=== PATIENT | female | born 1960 | race African-American/Black ===

== ENCOUNTER 2024-11-27 13:57 | Emergency (ER) | payer MEDICARE, OTHER ==
[2024-11-27 15:20] LABS: Basophils # (A) 0.06 10*3/uL (0.00-0.10); Basophils % (A) 1.0 %; Eosinophils # (A) 0.01 10*3/uL (0.04-0.35); Eosinophils % (A) 0.2 %; HCT 40.1 % (37.2-46.3); HGB 12.9 g/dL (12.0-15.0); Lymphocytes # (A) 1.19 10*3/uL (0.90-5.00); Lymphocytes % (A) 19.8 %; MCH 27.4 pg (27.0-32.0); MCHC 32.2 g/dL (32.0-37.0); MCV 85.1 fL (80.0-97.0); Monocytes # (A) 0.25 10*3/uL (0.20-1.00); Monocytes % (A) 4.2 %; Neutrophils # (A) 4.48 10*3/uL (1.80-7.70); Neutrophils % (A) 74.6 %; Platelet Count 316 10*3/uL (140-440); RBC 4.71 10*6/uL (4.10-5.20); RDW 15.8 % (11.5-14.5); WBC 6.00 10*3/uL (4.50-10.00)
--- NOTE | 2024-11-27 16:16 | ED ---
General Adult HPI - General Chief complaint: Abdominal Pain Stated complaint: Headache Time Seen by Provider: 11/27/24 14:10 Source: patient, RN notes reviewed Mode of arrival: ambulatory Limitations: no limitations - History of Present Illness Initial comments: 64-year-old female with history of hypertension presenting to the emergency department via EMS from [facility] with concerns for headache, abdominal pain, nausea and vomiting over the past 2 days. Patient states that she normally strains as a headache when her blood pressure is elevated as it has been. She denies chest pain, heart palpitations, dizziness, lightheadedness, peripheral edema. Patient endorses epigastric abdominal pain that is nonradiating and episode of emesis earlier in the day. She states that she was recently mated to the hospital for a kidney infection. States that she has been having malodorous vaginal discharge that is brown. Denies dysuria, hematuria, increased urinary frequency or urgency, flank pain. Denies previous surgeries of the abdomen. - Related Data Home Medications Medication Instructions Recorded Confirmed Acetaminophen [Tylenol] 650 mg PO Q4H PRN 11/27/24 11/27/24 Docusate [Colace] 100 mg PO BID PRN 11/27/24 11/27/24 Fluconazole [Diflucan] 150 mg PO DIRECTED 11/27/24 11/27/24 Magnesium Hydroxide [Milk of 2,400 mg PO BID PRN 11/27/24 11/27/24 Magnesia] Melatonin 10 mg PO HS 11/27/24 11/27/24 Mirtazapine [Remeron] 15 mg PO HS 11/27/24 11/27/24 Omeprazole 20 mg PO BID 11/27/24 11/27/24 Rosuvastatin [Crestor] 10 mg PO HS 11/27/24 11/27/24 Sucralfate [Carafate] 1 gm PO QID 11/27/24 11/27/24 Sulfamethox-Tmp 800-160Mg [Bactrim 1 tab PO BID 11/27/24 11/27/24 DS 800-160 mg] amLODIPine [Norvasc] 10 mg PO DAILY 11/27/24 11/27/24 Previous Rx's Medication Instructions Recorded Cephalexin [Keflex] 500 mg PO Q6HR #40 cap 11/27/24 Allergies Allergy/AdvReac Type Severity Reaction Status Date / Time ibuprofen [From Motrin] AdvReac Nausea Verified 11/27/24 21:09 Review of Systems ROS Statement: Those systems with pertinent positive or pertinent negative responses have been documented in the HPI. ROS Other: All systems not noted in ROS Statement are negative. Past Medical History Past Medical History: Hypertension Additional Past Medical History / Comment(s): Stomach ulcer, History of Any Multi-Drug Resistant Organisms: None Reported Additional Past Surgical History / Comment(s): Bleeding ulcer repair in 1988, Past Psychological History: No Psychological Hx Reported Smoking Status: Current every day smoker Past Alcohol Use History: Daily Past Drug Use History: Cocaine General Exam Limitations: no limitations General appearance: alert, in no apparent distress Neck exam: Present: normal inspection. Absent: tenderness, meningismus, lymphadenopathy Respiratory exam: Present: normal lung sounds bilaterally. Absent: respiratory distress, wheezes, rales, rhonchi, stridor Cardiovascular Exam: Present: regular rate, normal rhythm, normal heart sounds. Absent: systolic murmur, diastolic murmur, rubs, gallop, clicks GI/Abdominal exam: Present: soft, normal bowel sounds. Absent: distended, tenderness, guarding, rebound, rigid Extremities exam: Present: normal inspection, full ROM, normal capillary refill. Absent: tenderness, pedal edema, joint swelling, calf tenderness Back exam: Present: normal inspection. Absent: CVA tenderness (R), CVA tenderness (L) Neurological exam: Present: alert, oriented X3, CN II-XII intact Course Vital Signs 11/27/24 11/27/24 11/27/24 14:14 16:35 16:45 Temperature 97.9 F Pulse Rate 72 Respiratory 20 Rate Blood Pressure 159/94 133/89 146/82 O2 Sat by Pulse 99 Oximetry 11/27/24 11/27/24 11/27/24 17:02 19:21 20:00 Temperature Pulse Rate 71 63 Respiratory 18 16 Rate Blood Pressure 128/75 141/88 O2 Sat by Pulse 100 100 Oximetry 11/27/24 20:32 Temperature Pulse Rate 65 Respiratory 17 Rate Blood Pressure 160/87 O2 Sat by Pulse 99 Oximetry Medical Decision Making - Medical Decision Making Was pt. sent in by a medical professional or institution (, PA, GARDEN TRACTOR MECHANIC, urgent care, hospital, or longterm...) When possible be specific @ -No Did you speak to anyone other than the patient for history (EMS, parent, family, police, friend...)? What history was obtained from this source @ -No Did you review nursing and triage notes (agree or disagree)? Why? @ -I reviewed and agree with nursing and triage notes Were old charts reviewed (outside hosp., previous admission, EMS record, old EKG, old radiological studies, urgent care reports/EKG's, longterm records)? Report findings @ -No old charts were reviewed Differential Diagnosis (chest pain, altered mental status, abdominal pain women, abdominal pain men, vaginal bleeding, weakness, fever, dyspnea, syncope, headache, dizziness, GI bleed, back pain, seizure, CVA, palpatations, mental health, musculoskeletal)? @ -Differential Headache: Migraine, tension, cluster, carbon monoxide, central venous thrombosis, pension karma temporal arteritis, acute closure glaucoma, intercranial hemorrhage, mastoiditis, sinusitis, head injury, this is not meant to be an all-inclusive list. EKG interpreted by me (3pts min.). @ -Completed at 1656 sinus rhythm with a ventricular to 61, WA interval 149, QRS 81, QT 458, QTc 460. X-rays interpreted by me (1pt min.). @ -None done CT interpreted by me (1pt min.). @ -None done U/S interpreted by me (1pt. min.). @ -None done What testing was considered but not performed or refused? (CT, X-rays, U/S, labs)? Why? @ -None What meds were considered but not given or refused? Why? @ -None Did you discuss the management of the patient with other professionals (professionals i.e. , PA, GARDEN TRACTOR MECHANIC, lab, RT, psych nurse, social science analyst, regional program manager, teacher, ground nuclear weapons assembly officer, machine adjuster leader case trim)? Give summary @ -No Was smoking cessation discussed for >3mins.? @ -No Was critical care preformed (if so, how long)? @ -No Were there social determinants of health that impacted care today? How? (Homelessness, low income, unemployed, alcoholism, drug addiction, transportation, low edu. Level, literacy, decrease access to med. care, senior care, rehab)? @ -No Was there de-escalation of care discussed even if they declined (Discuss DNR or withdrawal of care, Hospice)? DNR status @ -No What co-morbidities impacted this encounter? (DM, HTN, Smoking, COPD, CAD, Cancer, CVA, ARF, Chemo, Hep., AIDS, mental health diagnosis, sleep apnea, morbid obesity)? @ -None Was patient admitted / discharged? Hospital course, mention meds given and route, prescriptions, significant lab abnormalities, going to OR and other pertinent info. @ -Discharge. 64-year-old female presenting to the emergency room via EMS from [place] for concerns of hypertension, headache and abdominal pain. Patient's blood pressure was 159/94 on arrival. EKG is in sinus rhythm. Overall patient is well-appearing. Patient states that she has abdominal cram ping however no tenderness on examination. Neurological examination is unremarkable. She is provided with dose of Tylenol and fluids for headache. Laboratory testing reveals mildly elevated creatinine 1.63 and BUN of 24 patient is provided with fluids. Urinalysis reveals leukocyte esterase with white cells and a cloudy appearance. As patient has been experiencing urinary complaints she will be treated for urinary tract infection with Keflex. Urine is sent for culture. Patient provided with Protonix and reevaluation states that her headache and abdominal pain have subsided. Patient stable for discharge. Case discussed with my attending Dr. Macias Undiagnosed new problem with uncertain prognosis? @ -No Drug Therapy requiring intensive monitoring for toxicity (Heparin, Nitro, Insulin, Cardizem)? @ -No Were any procedures done? @ -No Diagnosis/symptom? @ -Headache, history of hypertension, abdominal pain Acute, or Chronic, or Acute on Chronic? @ -Acute Uncomplicated (without systemic symptoms) or Complicated (systemic symptoms)? @ -Uncomplicated Side effects of treatment? @ -No Exacerbation, Progression, or Severe Exacerbation? @ -No Poses a threat to life or bodily function? How? (Chest pain, [place], [place], pneumonia, PE, COPD, DKA, ARF, appy, cholecystitis, CVA, Diverticulitis, Homicidal, Suicidal, threat to staff... and all critical care pts) @ -No - Lab Data Result diagrams: 11/27/24 15:12 11/27/24 20:43 Lab Results 11/27/24 11/27/24 11/27/24 Range/Units 15:12 18:13 20:43 WBC 6.00 (4.50-10.00) 10*3/uL RBC 4.71 (4.10-5.20) 10*6/uL Hgb 12.9 (12.0-15.0) g/dL Hct 40.1 (37.2-46.3) % MCV 85.1 (80.0-97.0) fL MCH 27.4 (27.0-32.0) pg MCHC 32.2 (32.0-37.0) g/dL Plt Count 316 (140-440) 10*3/uL MPV 9.3 L (9.5-12.2) fL Immature Gran % (Auto) 0.2 % Neutrophils % 74.6 % Lymphocytes % 19.8 % Monocytes % 4.2 % Eosinophils % 0.2 % Basophils % 1.0 % Immature Gran # 0.01 (0.00-0.04) 10*3/uL Neutrophils # 4.48 (1.80-7.70) 10*3/uL Lymphocytes # 1.19 (0.90-5.00) 10*3/uL Monocytes # 0.25 (0.20-1.00) 10*3/uL Eosinophils # 0.01 L (0.04-0.35) 10*3/uL Basophils # 0.06 (0.00-0.10) 10*3/uL Sodium 139 (137-145) mmol/L Potassium 4.8 (3.5-5.1) mmol/L Chloride 105 (98-107) mmol/L Carbon Dioxide 20 L (22-30) mmol/L Anion Gap 14 mmol/L BUN 24 H (7-17) mg/dL Creatinine 1.63 H (0.52-1.04) mg/dL Est GFR (CKD-EPI)AfAm 38 (>60 ml/min/1.73 sqM) Est GFR (CKD-EPI)NonAf 33 (>60 ml/min/1.73 sqM) Glucose 209 H (74-99) mg/dL Calcium 9.8 (8.4-10.2) mg/dL Total Bilirubin 0.4 (0.2-1.3) mg/dL AST 37 H (14-36) U/L ALT 26 (4-34) U/L Alkaline Phosphatase 86 (38-126) U/L Total Protein 7.2 (6.3-8.2) g/dL Albumin 4.2 (3.5-5.0) g/dL Amylase 97 (30-110) U/L Lipase 161 (23-300) U/L Urine Color Colorless Urine Appearance Cloudy H (Clear) Urine pH 6.5 (5.0-8.0) Ur Specific [place] 1.015 (1.001-1.035) Urine Protein 1+ H (Negative) Urine Glucose (UA) Negative (Negative) Urine Ketones Negative (Negative) Urine Blood Negative (Negative) Urine Nitrite Negative (Negative) Urine Bilirubin Negative (Negative) Urine Urobilinogen <2.0 (<2.0) mg/dL Ur Leukocyte Esterase Moderate H (Negative) Urine RBC 3 (0-5) /hpf Urine WBC 16 H (0-5) /hpf Ur Squamous Epith Cells 2 (0-4) /hpf Hyaline Casts 1 (0-2) /lpf Urine Mucus Rare H (None) /hpf Disposition Clinical Impression: Headache, Hypertension Disposition: HOME SELF-CARE Condition: Good Additional Instructions: Please return to the Emergency Department if symptoms worsen or any other concerns. Is patient prescribed a controlled substance at d/c from ED?: No Referrals: None,Stated [Primary Care Provider] - 1-2 days Time of Disposition: 21:20
[2024-11-27] MEDS: ACETAMINOPHEN TAB 500 MG TAB PO STA (16:44)
[2024-11-27] MEDS: SODIUM CHLORIDE 0.9% 1,000 ML IV ONE (16:48)
[2024-11-27 18:31] LABS: Bilirubin,Urine Negative (Negative); Blood,Urine Negative (Negative); Color,Urine Colorless; Glucose,Urine (UA) Negative (Negative); Hyaline Casts,Urine 1 /lpf (0-2); Ketones,Urine Negative (Negative); Leukocyte Esterase,Urine Moderate (Negative); Mucus,Urine Rare /hpf; Nitrite,Urine Negative (Negative); PH, Urine 6.5 (5.0-8.0); Protein,Urine 1+ (Negative); RBC,Urine 3 /hpf (0-5); Specific Gravity,Urine 1.015 (1.001-1.035); Squamous Epithelial Cell,Urine 2 /hpf (0-4); Urobilinogen,Urine <2.0 mg/dL (<2.0); WBC,Urine 16 /hpf (0-5)
[2024-11-27 20:55] VITALS: BP 160/87; PULSE 65; RESP 17
[2024-11-27 21:14] LABS: ALT 26 U/L (4-34); AST 37 U/L (14-36); African American GFR (CKD) 38 (>60 ml/min/1.73 sqM); Albumin 4.2 g/dL (3.5-5.0); Alkaline Phosphatase 86 U/L (38-126); Amylase 97 U/L (30-110); Anion Gap 14 mmol/L; Blood Urea Nitrogen 24 mg/dL (7-17); Calcium 9.8 mg/dL (8.4-10.2); Carbon Dioxide 20 mmol/L (22-30); Chloride 105 mmol/L (98-107); Glucose 209 mg/dL (74-99); Lipase 161 U/L (23-300); Non-African American GFR(CKD) 33 (>60 ml/min/1.73 sqM); Potassium 4.8 mmol/L (3.5-5.1); Sodium 139 mmol/L (137-145); Total Protein 7.2 g/dL (6.3-8.2)
[2024-11-27] MEDS: PANTOPRAZOLE 40 MG/10 ML VIAL IVP STA (21:49)
[2024-11-27 22:57] VITALS: TEMP 97.6
== END 2024-11-27 22:56 | disposition home or self-care (01) ==
LOC: EC 13:57
DX: R51.9 Headache, unspecified (principal); I10 Essential (primary) hypertension; F17.200 Nicotine dependence, unspecified, uncomplicated; Z88.6 Allergy status to analgesic agent
CPT/HCPCS: 36415; 93005; 80053; 82150; 83690; 85025; 81001; 87086; 99284; 96374; 96361; J2470